=== PATIENT | female | born 1990 | race Caucasian/White ===

== ENCOUNTER → 2017-01-20 | Outpatient (CLI) | payer OTHER | END | disposition home or self-care (01) | LOC: C.PAPS 15:14 | PROVIDERS: ATTEND Physician Assistant | DX: R87.615 Unsatisfactory cytologic smear of cervix (principal) ==

== ENCOUNTER → 2017-01-26 | Outpatient (CLI) | payer OTHER ==
--- NOTE | 2017-01-26 14:42 | MAMMOGRAPHY REPORT ---
ULTRASOUND OF LEFT BREAST: 01/26/2017 CLINICAL HISTORY: 26-year-old woman whose provider noted a palpable abnormality in the left breast on recent physical exam. No skin erythema or nipple discharge. No family history of breast cancer. COMPARISON: No prior exams were available for comparison. FINDINGS: Targeted ultrasound was performed in the area of palpable lump pointed out by the patient, which was noted by her provider on recent physical exam. On palpation, there is a nodular area and bridge in the 7:00 to 8:00 left breast, 3-4 cm from the nipple, measuring approximately 1 x 3 cm. On ultrasound, there is sonographically normal tissue without evidence of a discrete solid or cystic ma ss. The palpable abnormality could simply represent normal tissue, but clinical follow-up is recomme nded as biopsy of a clinically suspicious mass should not be precluded by negative imaging. IMPRESSION: ACR BI-RADS CATEGORY 1: NEGATIVE There is no sonographic evidence of malignancy or other suspicious abnormality in the area of palpabl e nodular area and adjacent ridge in the 7:00 to 8:00 left breast. Clinical follow-up is recommended as biopsy of a clinically suspicious mass should not be precluded by negative imaging. These results and recommendations were discussed with the patient and her boyfriend at the time of th e exam. Lissette Morales M.D. ay/:01/26/2017 11:57:42 Drywall Mechanic: Dr. Lissette Morales, [facility] letter sent: Normal 1/2 BI-RADS Code: ACR BI-RADS Category 1: Negative
== END | disposition home or self-care (01) ==
LOC: C.MAMM 11:10
PROVIDERS: ATTEND Physician Assistant
DX: N63 Unspecified lump in breast (principal)

== ENCOUNTER → 2017-08-28 | Outpatient (CLI) | payer OTHER | END | disposition home or self-care (01) | LOC: C.LAB1850 10:56 | PROVIDERS: ATTEND Physician Assistant Medical | DX: Z00.00 Encounter for general adult medical examination without abnormal findings (principal) ==